=== PATIENT | female | born 1945 | race African-American/Black ===

== ENCOUNTER → 2017-06-12 | Outpatient (CLI) | payer MEDICARE ==
[~2017-06-12] MED LIST: ACIPHEX20 MG PO; ALEVE PO; AMLODIPINE; BENICAR HCT 40-1 TA1 PO; CELEBREX PO; COREG PO; COREG12.5 MG PO; COZAAR PO; FEOSOL PO; FLECAINIDE ACE100 MG PO; GLIMEPIRIDE1 M1 PO; HYDROCODON-ACE1 EAC9 PO; JANUMET PO; LANTUS100 U/ML SQ; LEXAPRO20 MG PO; LOSARTAN-HCTZ1 EACH PO; NEXIUM PO; PRILOSEC PO; TEKTURNA PO; TUMS; ULTRAM PO; VITAMIN D350000 UNIT PO; XARELTO20 MG PO
--- NOTE | ~2017-06-12 | CR97 ---
[facility] A Service of [facility] & [facility] RADIOLOGY TEXT RESULTS PATIENT: CLARIBEL BREAUX LOCATION: [facility] : 43 UNIT #: [id number] AGE: [address]: Vincent Giang MD SEX: F ORDER DR: [id number] [facility] [address] [place], [place] [address] [id number] O MR#: [id number] Acc #: [id number] NAME: CLARIBEL BREAUX : 1945 SEX: F STUDY DATE/TIME: 06/12/2017 9:55 UNIT: [facility] ROOM: STUDY DESCRIPTION: CR Esophagram Attending Physician: Vincent Giang M.D. Referring Physician: Vincent Giang M.D. Ordering Physician: Vincent Giang M.D. Primary Care Physician: Darrell Pak M.D. MEDICAL IMAGING REPORT This report is preliminary unless electronic signature is present EXAM Esophagram 06/12/2017 HISTORY Status post Lap-Band with recent onset nausea, vomiting. PROCEDURE Study performed with 0.8 minutes of fluoroscopy and a total of 14 spot images and 1 overhead view. FINDINGS There is a small to moderate hiatal hernia, and the Lap-band is seen below the diaphragm, across the proximal to mid stomach. There is no ulceration, mass or stricture. IMPRESSION Small to moderate hiatal hernia with the Lap-Band placed across the proximal to mid stomach below the diaphragm. Dictated by... Victoriano Arana M.D. THIS IS AN ELECTRONICALLY VERIFIED REPORT Victoriano Arana M.D. at 06/14/2017 4:06 PM ESTER/stefany TD: 06/13/2017 06:10 JOB #: [id number] MEDICAL IMAGING REPORT Page 1 of 1 COPY
== END | disposition home or self-care (01) ==
LOC: CRAD 06-06 10:00
DX: R13.10 Dysphagia, unspecified (principal); K44.9 Diaphragmatic hernia without obstruction or gangrene
CPT/HCPCS: 74220

== ENCOUNTER → 2017-06-21 | Day surgery (SDC) | payer MEDICARE | END | disposition home or self-care (01) | LOC: CSUR 06:32 | DX: K95.01 Infection due to gastric band procedure (principal); Z53.9 Procedure and treatment not carried out, unspecified reason; I10 Essential (primary) hypertension; E11.9 Type 2 diabetes mellitus without complications; K21.9 Gastro-esophageal reflux disease without esophagitis; M19.90 Unspecified osteoarthritis, unspecified site; E66.3 Overweight; Z72.4 Inappropriate diet and eating habits; Z68.29 Body mass index [BMI] 29.0-29.9, adult; Z79.84 Long term (current) use of oral hypoglycemic drugs; Z79.899 Other long term (current) drug therapy | CPT/HCPCS: 82947 ==

== ENCOUNTER 2017-06-26 06:28 | Inpatient (IN) | payer MEDICARE ==
[~2017-06-26] VITALS: Ht 170.2 cm; Wt 86.0 kg
--- NOTE | ~2017-06-26 | EKG ---
PATIENT: CLARIBEL BREAUX UNIT #: [id number] Ventricular Rate: 62 BPM Atrial Rate: 62 BPM P-R Interval: 256 ms QRS Duration: 106 ms Q-T Interval: 432 ms QTC Calculation(Bezet): 438 ms P [place]: 38 degrees Calculated R [place]: 18 degrees Calculated T [place]: 53 degrees Diagnosis Line: Sinus rhythm with 1st degree A-V block Diagnosis Line: Incomplete left bundle branch block Diagnosis Line: Nonspecific T wave abnormality Diagnosis Line: Abnormal ECG Diagnosis Line: No previous ECGs available Diagnosis Line: Confirmed by ROSY COE MD ([id number]) on 06/26/2017 Diagnosis Line: 7:39:29 PM INTERPRETING MD: SARAVANAN VERA
--- NOTE | ~2017-06-26 | CR63 ---
[facility] A Service of [facility] & [facility] RADIOLOGY TEXT RESULTS PATIENT: CLARIBEL BREAUX LOCATION: [facility] 468-01 : 43 UNIT #: [id number] AGE: [address]: Vincent Giagn MD SEX: F ORDER DR: [id number] [facility] [address] [place], [place] [address] [id number] I MR#: [id number] Acc #: [id number] NAME: CLARIBEL BREAUX : 1945 SEX: F STUDY DATE/TIME: 06/28/2017 8:59 UNIT: [facility] ROOM: [facility] STUDY DESCRIPTION: CR Chest 2 View Attending Physician: Vincent Giang M.D. Ordering Physician: Leoncio Rodarte M.D. Primary Care Physician: Darrell Pak M.D. MEDICAL IMAGING REPORT This report is preliminary unless electronic signature is present EXAM 2 views of the chest COMPARISON June 28, 2017, June 27, 2017, June 26, 2017. INDICATION 72-year-old female with dyspnea since Saturday. Collapsed right lung after hernia repair. Evaluate for residual pneumothorax after chest tube removal. FINDINGS/IMPRESSION There has been removal of a right-sided pleural catheter. No evidence of pneumothorax or pleural effusion. There are stable bibasilar opacities, favoring atelectasis, in absence of fever. There are multilevel degenerative changes of the thoracic spine. Cardiomediastinal silhouette is likely within normal limits for low lung volumes. Dictated by... Karel Ivy M.D. THIS IS AN ELECTRONICALLY VERIFIED REPORT Karel Ivy M.D. at 07/03/2017 6:09 PM MARTINA/remi TD: 06/28/2017 13:08 JOB #: [id number] MEDICAL IMAGING REPORT Page 1 of 1 COPY
--- NOTE | ~2017-06-26 | CR71 ---
[facility] A Service of [facility] RADIOLOGY TEXT RESULTS PATIENT: CLARIBEL BREAUX LOCATION: [facility] 468-01 : 43 UNIT #: [id number] AGE: [address]: Vincent Giang MD SEX: F ORDER DR: [id number] [facility] [address] [place], [place] [address] [id number] I MR#: [id number] Acc #: [id number] NAME: CLARIBEL BREAUX : 1945 SEX: F STUDY DATE/TIME: 06/26/2017 UNIT: [facility] ROOM: [facility] STUDY DESCRIPTION: CR Chest Single View Attending Physician: Vincent Giang M.D. Ordering Physician: Vincent Giang M.D. Primary Care Physician: Darrell Pak M.D. MEDICAL IMAGING REPORT This report is preliminary unless electronic signature is present EXAM Chest single view 06/26/2017 1241 hours HISTORY Patient complains of shortness of air, right shoulder pain post lap-band revision today. Follow up right pneumothorax. COMPARISON Chest x-ray 06/26/2017 1132 hours. FINDINGS Portable upright chest demonstrates extremely low lung volumes with bibasilar linear densities persisting. The right pneumothorax has significantly decreased in size from earlier 1123 hours. There is a less than 1 cm remaining right apical pneumothorax. No left pneumothorax is seen. IMPRESSION Persistently low lung volumes with linear densities at the bases. The right pneumothorax has significantly improved with only a small 1 cm right apical pneumothorax remaining. Dictated by... Juhi Carmona M.D. THIS IS AN ELECTRONICALLY VERIFIED REPORT Juhi Carmona M.D. at 06/27/2017 9:15 AM ZURI/shanthi TD: 06/26/2017 22:18 JOB #: [id number] MEDICAL IMAGING REPORT [facility] A Service of [facility] & [place] [facility] RADIOLOGY TEXT RESULTS PATIENT: CLARIBEL BREAUX LOCATION: [facility] 468-01 : 43 UNIT #: [id number] AGE: [address]: Vincent Giang MD SEX: F ORDER DR: Page 1 of 1 COPY
--- NOTE | ~2017-06-26 | CR71 ---
[facility] A Service of [facility] & [facility] RADIOLOGY TEXT RESULTS PATIENT: CLARIBEL BREAUX LOCATION: [facility] 468-01 : 43 UNIT #: [id number] AGE: [address]: Vincent Giang MD SEX: F ORDER DR: [id number] [facility] [address] [place], [place] [address] [id number] I MR#: [id number] Acc #: [id number] NAME: CLARIBEL BREAUX : 1945 SEX: F STUDY DATE/TIME: 06/26/2017 11:32 UNIT: [facility] ROOM: [facility] STUDY DESCRIPTION: CR Chest Single View Attending Physician: Vincent Giang M.D. Ordering Physician: Vincent Giang M.D. Primary Care Physician: Darrell Pak M.D. MEDICAL IMAGING REPORT This report is preliminary unless electronic signature is present EXAM Portable chest. HISTORY Status post Lap-Band surgery. Short of air; evaluate for pneumothorax. FINDINGS Portable view of the chest was obtained. There is a right-sided pneumothorax that is moderate in size. The pleural line is about 2.2 cm from the lateral chest. There is right lower lobe atelectasis and minimal left lower lobe atelectasis. IMPRESSION 1. Moderate-sized right-sided pneumothorax. I have discussed the findings with the patient's nurse, Kelli, in the recovery room. 2. Bibasilar atelectasis. Dictated by... Finn Smith M.D. THIS IS AN ELECTRONICALLY VERIFIED REPORT Finn Smith M.D. at 06/27/2017 7:01 AM NICOLE/remi TD: 06/26/2017 17:32 JOB #: [id number] MEDICAL IMAGING REPORT Page 1 of 1 COPY
--- NOTE | ~2017-06-26 | CR72 ---
[facility] A Service of [facility] & [facility] / [facility] RADIOLOGY TEXT RESULTS PATIENT: CLARIBEL BREAUX LOCATION: [facility] 468-01 : 43 UNIT #: [id number] AGE: [address]: Vincent Giang MD SEX: F ORDER DR: [id number] [facility] [place] [facility] [address] [place], [place] [address] [id number] I MR#: [id number] Acc #: [id number] NAME: CLARIBEL BREAUX : 1945 SEX: F STUDY DATE/TIME: 06/28/2017 5:34 UNIT: [facility] ROOM: [facility] STUDY DESCRIPTION: CR Chest Single View Portable Attending Physician: Vincent Giang M.D. Ordering Physician: Leoncio Rodarte M.D. Primary Care Physician: Darrell Pak M.D. MEDICAL IMAGING REPORT This report is preliminary unless electronic signature is present EXAM Portable chest. INDICATIONS Chest tube placement and shortness of air. Follow up pneumothorax. COMPARISON Today's portal view chest with yesterday's study. FINDINGS Small caliber right-sided chest tube is still present. There is no pneumothorax visible. There are low lung volumes with mild basilar atelectasis. Dictated by... Finn Smith M.D. THIS IS AN ELECTRONICALLY VERIFIED REPORT Finn Smith M.D. at 06/28/2017 1:48 PM FEL/gz TD: 06/28/2017 10:41 JOB #: [id number] MEDICAL IMAGING REPORT Page 1 of 1 COPY
--- NOTE | ~2017-06-26 | OR ---
Unit #: [id number] #: [id number] Patient: CLARIBEL BREAUX [id number] [address] [address] [id number] Nadege MR#: [id number] NAME: CLARIBEL BREAUX ROOM: 468 Date of Procedure: 06/26/2017 Admission Date: 06/26/2017 Surgeon: Vincent Giang M.D. : 1945 Attending Physician: Vincent Giang M.D. Primary Care Physician: Darrell Pak M.D. OPERATIVE REPORT PREOPERATIVE DIAGNOSIS Laparoscopic adjustable gastric band slip. POSTOPERATIVE DIAGNOSES 1. Laparoscopic adjustable gastric band slip. 2. Recurrent paraesophageal hiatal hernia. PROCEDURES PERFORMED 1. Anterior laparoscopic adjustable gastric band slip with replacement of lap band with large AP band. 2. Laparoscopic paraesophageal hiatal hernia repair. DRIVER/[employer]AL[employer] WORKERS Morgan Arambula M.D. ANESTHESIA General anesthesia. ESTIMATED BLOOD LOSS Minimal. IV FLUIDS 1500 crystalloid. COMPLICATIONS None. INDICATIONS FOR PROCEDURE The patient is a 72-year-old lady, who has had a lap band for quite some time, done very well. She presents with persisted gastroesophageal reflux disease. Subsequent barium swallow shows a large hiatal hernia with band slip. She presents for surgical intervention. DESCRIPTION OF PROCEDURE The patient was taken to the operating theater and placed in supine position. General anesthesia was induced. Her abdomen was prepped and draped. A 10 mm Visiport was then placed left of her previous lap band port. The abdomen was insufflated to 15 mmHg with CO2. Under direct vision, I placed a left lower quadrant 5 mm, left upper quadrant 10 mm, right upper quadrant 5 mm. A Shanda liver retractor was placed intraabdominal to retract the left lobe of the liver upward. The patient was placed in reverse Trendelenburg. We identified what appeared to be a Unit #: [id number] #: [id number] Patient: CLARIBEL BREAUX large anterior band slip. This appeared to have slipped and then was trapped in the hiatus as a large paraesophageal hiatal hernia. We began by mobilization of lap band, taken down the adhesions to the liver. We then dissected down the right crura and identified the left crura. We were able to reduce a large paraesophageal hiatal hernia. The sac was excised. I then cut the previous lap band, and this was removed. I repaired the paraesophageal hiatal hernia with interrupted 0 Ethibond suture posteriorly. I used two interrupted 0 Ethibond sutures in a figure-eight fashion. This provided a snug repair at the esophagus. I then placed a large lap band around the proximal stomach creating a gastric pouch measuring approximately 20 to 25 mL. This was buckled and the fundus secured to the diaphragm as well as to the anterior pouch. A 3rd imbrication stitch was then used from the lesser curve to the previous portion of the fundus that was sutured to the gastric pouch, thus securing the band in place. Hemostasis was adequate. I saw no other abnormalities. The ports were removed and skin closed with 4-0 Vicryl. The patient tolerated the procedure well and sent to recovery in good condition. Dictated by... Willard Enriquez/jenna TD: 06/28/2017 07:53 JOB #: [id number] OPERATIVE REPORT Page 1 of 1 X Vincent Giang MD X PROCEDURE OPERATIVE NOTE
--- NOTE | ~2017-06-26 | CR72 ---
[facility] A Service of [facility] & [facility] RADIOLOGY TEXT RESULTS PATIENT: CLARIBEL BREAUX LOCATION: [facility] 468-01 : 43 UNIT #: [id number] AGE: [address]: Vincent Giang MD SEX: F ORDER DR: [id number] [facility] [address] [place], [place] [address] [id number] I MR#: [id number] Acc #: [id number] NAME: CLARIBEL BREAUX : 1945 SEX: F STUDY DATE/TIME: 06/27/2017 03:46 UNIT: [facility] ROOM: [facility] STUDY DESCRIPTION: CR Chest Single View Portable Attending Physician: Vincent Giang M.D. Ordering Physician: Anita Worthy A.P.R.N. Primary Care Physician: Darrell Pak M.D. MEDICAL IMAGING REPORT This report is preliminary unless electronic signature is present EXAM Portable chest, 06/27 at 03:46 INDICATION Chest tube, shortness of air for 2 days. FINDINGS AP portable chest is compared with 06/26/2017. The heart remains enlarged. Small caliber right chest tube in place. There is a small right basilar pneumothorax. There is persistent atelectasis in both bases. There is at least a small left effusion. Dictated by... John Farfan Jr., M.D. THIS IS AN ELECTRONICALLY VERIFIED REPORT John Farfan Jr., M.D. at 06/28/2017 1:54 AM PAUL/terra TD: 06/27/2017 12:23 JOB #: [id number] MEDICAL IMAGING REPORT Page 1 of 1 COPY
--- NOTE | ~2017-06-26 | DS ---
Unit #: [id number] #: [id number] Patient: CLARIBEL BREAUX [id number] [address] [address] [id number] I MR#: [id number] NAME: CLARIBEL BREAUX ROOM: 468 Age: 72 Sex: F Admission Date: 06/26/2017 : 1945 Discharge Date: 06/28/2017 Attending Physician: Vincent Giang M.D. Primary Care Physician: Darrell Pak M.D. DISCHARGE SUMMARY DISCHARGE DIAGNOSIS Pneumothorax, status post laparoscopic paraesophageal hiatal hernia repair and laparoscopic band revision for lap band slip. PROCEDURE Radiographic chest tube placement. HOSPITAL COURSE The patient is a 72-year-old lady who underwent lap band revision for a slip and was found to have a very large paraesophageal hiatal hernia. Subsequent postop chest x-ray showed a small pneumothorax on the right. This was treated with aspiration in radiology. This was in then placed to water seal and then removed after resolution of her pneumothorax. During her hospital course, she progressed towards tolerating liquid diet without difficulty with good pain management. DISPOSITION Patient will be discharged home in good condition. She is to follow a liquid diet as discussed. She is to follow up with Dr. Giang in 2 weeks. MEDICATIONS Medications are her regular home medications and Labelle 7.5 q.4 p.r.n. Dictated by... Willard EnriquezO/dayne TD: 07/01/2017 11:51 JOB #: [id number] Unit #: [id number] #: [id number] Patient: CLARIBEL BREAUX DISCHARGE SUMMARY Page 1 of 1 X Vincent Giang MD X DISCHARGE SUMMARY
--- NOTE | ~2017-06-26 | CR7 ---
[facility] A Service of [facility] RADIOLOGY TEXT RESULTS PATIENT: CLARIBEL BREAUX LOCATION: [facility] 468 : 43 UNIT #: [id number] AGE: [address]: Vincent Giang MD SEX: F ORDER DR: [id number] [place] [id number] [facility] [place], [place] [address] [id number] I MR#: [id number] Acc #: [id number] NAME: CLARIBEL BREAUX : 1945 SEX: F STUDY DATE/TIME: 06/26/2017 11:30 UNIT: [facility] ROOM: [facility] STUDY DESCRIPTION: CR Abdomen Single AP View Attending Physician: Vincent Giang M.D. Ordering Physician: Vincent Giang M.D. Primary Care Physician: Darrell Pak M.D. MEDICAL IMAGING REPORT This report is preliminary unless electronic signature is present EXAM Abdomen. INDICATIONS Postop Lap-Band placement. Evaluate position of band. FINDINGS Supine view of the abdomen was obtained. Bowel gas pattern is normal. The patient has dextroscoliosis centered at T12. It appears that the Lap-Band has an angle of about 60-degrees off a vertical thru the spine. There are bilateral hip prosthesis. IMPRESSION 1. The study only shows about a centimeter above the Lap-Band device and there is some scoliosis in the lumbar spine which makes determining the exact angle between the band and the spine difficult, but it does seem that the band is more horizontal than usual and clinical correlation is recommended; otherwise, the study is negative. Dictated by... Finn Smith M.D. THIS IS AN ELECTRONICALLY VERIFIED REPORT Finn Smith M.D. at 06/27/2017 12:34 PM Rosamaria TD: 06/26/2017 17:25 JOB #: [id number] MEDICAL IMAGING REPORT [facility] A Service [facility] RADIOLOGY TEXT RESULTS PATIENT: CLARIBEL BREAUX LOCATION: [facility] : 43 UNIT #: [id number] AGE: [address]: Vincnet Giang MD SEX: F ORDER DR: Page 1 of 1 COPY
--- NOTE | ~2017-06-26 | CO ---
Unit #: [id number] #: [id number] Patient: CLARIBEL BREAUX [id number] [facility] [address] [place], [place] [address] [id number] I MR#: [id number] NAME: CLARIBEL BREAUX ROOM: Age: 72 Sex: F Admission Date: 06/26/2017 : 1945 Attending Physician: Vincent Giang M.D. Primary Care Physician: Darrell Pak M.D. Consultation Date: 06/26/2017 CONSULTATION REPORT REQUESTING PHYSICIAN Vincent Giang M.D. CONSULTING PHYSICIAN Dr. Leoncio Rodarte. REASON FOR CONSULT Right pneumothorax. HISTORY OF PRESENT ILLNESS A 72-year-old female presented to [facility] for Lap Band revision. Following surgery, she complained of shortness of air and right-side chest wall pain. Chest x-ray revealed an approximately 40% pneumothorax. Consult for thoracic surgery to intervene was made. Call was made to interventional radiology as Dr. Rodarte was in surgery at the time and Dr. Arana placed a small pigtail catheter in the right and followup chest x-ray is pending. The patient's symptoms have resolved. Patient has no past medical history of pneumothorax. She denies any coronary artery disease, myocardial infarction, or congestive heart failure. She does have history of hypertension, diabetes, obesity, GERD, dysphagia, and depression. PAST SURGICAL HISTORY 1. Bilateral hip replacement. 2. Lap Band surgery seven to eight years ago. 3. Lap Band revision today. 4. Breast biopsies bilaterally benign several years ago. 5. Hernia repair several years ago. FAMILY AND SOCIAL HISTORY She lives with family. She is a nonsmoker. She does not drink alcohol or use illicit drugs. REVIEW OF SYSTEMS As noted in the HPI with 10-point review completed. MEDICATIONS 1. Carvedilol 12.5 mg tablet daily. 2. Feosol tablets. 3. Flecainide acetate 100 mg tablets once a day. 4. Glimepiride 1 mg once a day. 5. Losartan/hydrochlorothiazide 50/12.5 once a day. 6. Vitamin D 50,000 units once a week. Unit #: [id number] #: [id number] Patient: CLARIBEL BREAUX 7. Xarelto 20 mg tablet. MEDICATION ALLERGIES None. PHYSICAL EXAMINATION VITAL SIGNS: Temperature 98.6, heart rate 84, respiratory rate 16, blood pressure 141/62. GENERAL: Ms. Breaux is a well-groomed, well-nourished, 72-year-old female. Good historian regarding all medical history. Accompanied by significant other at bedside. She is a good historian. NEUROLOGIC/PSYCHIATRIC: Cranial nerves II-XII are intact. Her speech is appropriate and clear and she is congenial. HEENT: Normocephalic. No facial asymmetry. Sclerae anicteric. NECK: Supple. Trachea midline. No thyromegaly. No palpable subcutaneous emphysema noted. No palpable cervical, supraclavicular, or occipital lymphadenopathy. LUNGS: Her lungs are clear to auscultation. No chest wall asymmetry or increase in AP diameter. CARDIOVASCULAR: S1, S2 without rub, without murmur. No S3 or 4. No peripheral edema. ABDOMEN: Her abdomen is round, soft, bowel sounds positive. Nontender. No pulsatile masses or hepatosplenomegaly. EXTREMITIES: Her extremities are warm and dry. There is no clubbing or cyanosis, edema, rash. Chest tube is to (1) drainage and there is no air leak noted and no drainage in the chamber. DIAGNOSTIC STUDIES LABORATORY: BUN 22, creatinine 1.1, sodium 137, potassium 4.4. IMPRESSION Right pneumothorax, status post chest tube pigtail placed by interventional radiology. PLAN 1. Observe tube. 2. Chest x-ray in the a.m. Dictated by... Anita Worthy A.P.R.N. for Willard Scherer/joshua TD: 06/26/2017 16:34 JOB #: [id number] Unit #: [id number] #: [id number] Patient: CLARIBEL BREAUX CONSULTATION REPORT Page 1 of 1 X Anita Worthy [employer]ING [employer]ATING [employer] X CONSULTATION REPORT
--- NOTE | ~2017-06-26 | CR71 ---
[facility] A Service of [facility] & [facility] RADIOLOGY TEXT RESULTS PATIENT: CLARIBEL BREAUX LOCATION: [facility] 468-01 : 43 UNIT #: [id number] AGE: [address]: Vincent Giang MD SEX: F ORDER DR: [id number] [facility] [address] [place], [place] [address] [id number] I MR#: [id number] Acc #: [id number] NAME: CLARIBEL BREAUX : 1945 SEX: F STUDY DATE/TIME: 06/26/2017 15:52 UNIT: [facility] ROOM: [facility] STUDY DESCRIPTION: CR Chest Single View Attending Physician: Vincent Giang M.D. Ordering Physician: Leoncio Rodarte M.D. Primary Care Physician: Darrell Pak M.D. MEDICAL IMAGING REPORT This report is preliminary unless electronic signature is present EXAM Portable chest. INDICATIONS Fall, chest tube placement for pneumothorax on right side. FINDINGS Portable view of the chest is compared with earlier the same day. Small apical pneumothorax has been treated with a small caliber chest tube. The pneumothorax has resolved. There are low lung volumes with bibasilar atelectasis. Dictated by... Finn Smith M.D. THIS IS AN ELECTRONICALLY VERIFIED REPORT Finn Smith M.D. at 06/27/2017 12:35 PM NICOLE/olivier TD: 06/27/2017 08:12 JOB #: [id number] MEDICAL IMAGING REPORT Page 1 of 1 COPY
[~2017-06-26 06:28] MED LIST changes: -HYDROCODON-ACE1 EAC9 PO
[2017-06-26 08:06] LABS: CALCIUM SERUM 9.4 mg/dL (8.4-10.2); CREATININE SERUM 1.1 mg/dL (0.6-1.4); GLOM FILT RATE Estimated 57.3 mL/min (>60); POTASSIUM 4.4 mmol/L (3.5-5.1)
[2017-06-27 02:51] LABS: HEMATOCRIT 36.4 % (35.0-45.0); MEAN CELL VOLUME 96.8 FL (83-96); MEAN CORPUSCULAR HGB CONC 33.1 g/dL (30-36); MEAN PLATELET VOLUME 7.7 FL (6.5-11.5); RED BLOOD COUNT 3.76 X10e (3.90-5.30); RED CELL DISTRIBUTION WIDTH 13.2 % (11.0-15.5); WHITE BLOOD COUNT 6.3 X10e3 (4.0-10.5)
[2017-06-28] MEDS ORDERED: HYDROCODON-ACE1 EAC9 PO (14:35)
== END 2017-06-28 15:30 | disposition home or self-care (01) | DRG 165 ==
LOC: CSUR 06:28 → C4C 12:02 → CSUR 12:02 → CPACUOF 12:02 → C4C 17:01
PROVIDERS: Surgery
PROC: 0BQS4ZZ (ICD-10-PCS; 2017-06-26)
PROC: 0BQR4ZZ (ICD-10-PCS; 2017-06-26)
PROC: 0DV64CZ Restriction of Stomach with Extraluminal Device, Percutaneous Endoscopic Approach (ICD-10-PCS; 2017-06-26)
PROC: 0W9930Z Drainage of Right Pleural Cavity with Drainage Device, Percutaneous Approach (ICD-10-PCS; 2017-06-26)
PROC: 0DP64CZ Removal of Extraluminal Device from Stomach, Percutaneous Endoscopic Approach (ICD-10-PCS; principal; 2017-06-26 09:00)
DX: J95.811 Postprocedural pneumothorax (principal); I48.91 Unspecified atrial fibrillation; E11.9 Type 2 diabetes mellitus without complications; I34.1 Nonrheumatic mitral (valve) prolapse; K44.9 Diaphragmatic hernia without obstruction or gangrene; Y83.9 Surgical procedure, unspecified as the cause of abnormal reaction of the patient, or of later complication, without mention of misadventure at the time of the procedure; Z98.84 Bariatric surgery status; Z96.643 Presence of artificial hip joint, bilateral; Z96.652 Presence of left artificial knee joint; K21.9 Gastro-esophageal reflux disease without esophagitis; Z79.01 Long term (current) use of anticoagulants; Z79.84 Long term (current) use of oral hypoglycemic drugs
CPT/HCPCS: 71010; 71020; 74000; 80048; 82947; 85027; 93005; 94760; 99152; 99153; J0330; J0690; J2250; J2270; J2370; J2405; J2550; J2710; J3010; L8699